=== PATIENT | female | born 1955 | race Caucasian/White ===

== ENCOUNTER 2018-07-01 17:10 | Inpatient (IN) ==
[2018-07-01 21:31] LABS: INR 1.1; Prothrombin Time 12.7 Seconds (9.4-12.1)
[2018-07-01 21:33] LABS: Activated Partial Thrombo Time 26.3 Seconds (26.0-36.0)
[2018-07-01 21:42] LABS: Basophils # 0.1 K/mcL (0.0-0.2); Basophils % 1.1 %; Eosinophils # 0.6 K/mcL (0.0-0.6); Eosinophils % 6.9 %; Hematocrit 42.9 % (35.3-44.9); Hemoglobin 11.9 g/dL (11.5-15.4); Immature Granulocytes % 1.1 % (0-4); Lymphocytes # 1.1 K/mcL (0.6-4.6); Lymphocytes % 13.7 %; Mean Corpuscular HGB Conc 27.7 g/dL (31.6-35.5); Mean Corpuscular Hemoglobin 23.1 pg (28.0-33.3); Mean Corpuscular Volume 83.1 fL (83.0-100.0); Mean Platelet Volume 9.2 fL (9.4-12.4); Monocytes # 0.7 K/mcL (0.0-1.3); Monocytes % 8.9 %; Neutrophils # 5.7 K/mcL (1.6-8.9); Platelet Count 299 K/mcL (140-400); Red Blood Count 5.16 M/mcL (3.82-4.97); Segmented Neutrophils % 68.3 %
[2018-07-01] MEDS: Sennosides/Docusate Sodium TABLET PO SCH (21:56)
[2018-07-01 21:57] LABS: Anisocytosis 1+ (Not Present); Hypochromasia Present (Not Present)
[2018-07-02] MEDS ORDERED: Melatonin 3 MG TABLET PO SCH (09:00)
[2018-07-02] MEDS: Aspirin Enteric Coated 325 MG Tablet PO SCH (09:53)
[2018-07-02] MEDS: Nicotine 21 MG PATCH.TD24 TD SCH (09:54)
[2018-07-02] MEDS: risperiDONE 1 MG TABLET PO SCH (09:54)
[2018-07-02] MEDS: Magnesium Oxide 400 MG TABLET PO SCH (09:54)
[2018-07-02] MEDS: Sennosides/Docusate Sodium TABLET PO SCH ×2 (09:54→21:31)
--- NOTE | 2018-07-02 19:15 | Internal Med History&Physical ---
Date of Encounter: 07/02/18 Time of Encounter: 18:45 Assessment and Plan (1) CVA (cerebral vascular accident) Current visit: Yes Status: Acute Continue aspirin. PT and OT evaluations will be done and further workup as needed. Qualifiers: CVA mechanism: embolism Precerebral and cerebral artery: unspecified precerebral artery Qualified Code(s): I63.10 - Cerebral infarction due to embolism of unspecified precerebral artery (2) Hypertension Current visit: Yes Status: Chronic Continue Lopressor. Qualifiers: Hypertension type: essential hypertension Qualified Code(s): I10 - Essential (primary) hypertension Internal Medicine - H&P: HPI Chief complaint: Stroke, pneumonia Admitted From: Hospital to Hospital Transfer Plans for Post Hospital Care: Home History of present illness: Ms. Vences is a 63 year old female who was transferred from [facility] to [facility] 06/20/2018 for acute respiratory failure and acute neurologic deficit. She required intubation through June 24 and completed a seven-day course of Levaquin. She had right lower lobe consolidation with pleural effusion and thoracentesis was done. She had acute neurologic deficits documented at [place] and MRI in [place] showed acute ischemic infarcts in left frontal, posterior right frontal, left parietal, and left occipital lobes consistent with central embolic etiology. Echocardiogram showed LVEF of 50-55% without thrombus seen but PFO documented. There was mild mitral regurgitation. Carotid Doppler studies showed 1-49% stenosis bilaterally. MBS showed penetration on thin liquids. She was placed on pureed diet. Following stabilization she transferred to [facility] swing bed for ongoing therapy needs. She is considered a fair to good historian. She does not number some details of her hospitalization. She denies pain or dyspnea at present time. She thinks she had a previous stroke but does not remember details. She denies seizures. Past Med Surg Social Fam HX - Past Medical History Medical history: CVA, hyperlipidemia, hypertension, myocardial infarction, SVT Psychiatric history: no psych history, bipolar - Past Surgical History Surgical History: angioplasty/stent Additional surgical history: LOOP implanted heart monitor. - Social History Smoking Status: Former smoker Smokeless Tobacco Status: No Alcohol use: none, unknown Drug use: unknown Internal Medicine - H&P: Meds Acetaminophen [Pain Relief] 650 mg PO Q6H PRN 07/01/18 [History] Albuterol Sulfate [Albuterol Inhaler] 2 puff IH Q4H PRN 07/01/18 [History] Aspirin Enteric Coated [Aspirin EC] 325 mg PO DAILY 07/01/18 [History] Atorvastatin [Lipitor] 80 mg PO HS 07/01/18 [History] Clopidogrel [Plavix] 75 mg PO DAILY 07/01/18 [History] Magnesium Oxide [Magnesium] 400 mg PO DAILY 07/01/18 [History] Melatonin 5 mg PO DAILY 07/01/18 [History] Metoprolol [Lopressor] 25 mg PO BID 07/01/18 [History] Nicotine Patch [Nicoderm] 21 mg TD DAILY 07/01/18 [History] Omeprazole [PriLOSEC] 40 mg PO DAILY 07/01/18 [History] Potassium Chloride [K-Tab ER] 20 meq PO DAILY 07/01/18 [History] RisperiDONE [Risperdal] 1 tab PO DAILY 07/01/18 [History] Sennosides/Docusate Sodium [Senna-Docusate Sodium Tablet] 1 tab PO BID 07/01/18 [History] 3 Allergy/AdvReac Type Severity Reaction Status Date / Time No Known Allergies Allergy Verified 07/01/18 18:51 All Systems PM: A 10-system review of systems was performed and is negative for pertinent findings except as documented above in the HPI. Review of systems: Gen.: She states her weight has been stable for several months Cardiovascular: She has history of hypertension. She had PFO documented during her recent [place] hospitalization. She denies LA heart failure DVT or pulmonary embolus Respiratory: She has smoked since age 15 up to one pack per day. She denies chronic lung disease and does not use home oxygen GI: She denies disorders of her liver gallbladder or exocrine pancreas : She denies hematuria dysuria or kidney stones Neurologic: As per history of present illness Endocrine: She denies diabetes thyroid disease or hyperlipidemia Hematology/oncology: She denies blood disorders cancers or anemia Psychiatric: She denies anxiety depression or other mental health issues [place] skeletal: She denies arthritis gout or other bone joint or muscle disorders. - Constitutional Vitals: Temp Pulse Resp BP Pulse Ox 98.4 F 86 18 135/79 93 07/02/18 19:05 07/02/18 19:05 07/02/18 19:05 07/02/18 19:05 07/02/18 19:05 Exam: Gen.: She is a well-developed well-nourished female sitting in a chair at bedside who appears in no acute distress HEENT: Head is atraumatic and normocephalic. Eyes: EOMI. There is no scleral icterus. Mouth: Mucosa is moist. Neck: Supple and nontender. There is no thyromegaly or adenopathy noted. Heart: Regular without murmurs gallops or ectopics Lungs: She has diminished breath sounds with egophony in the right base posteriorly. No wheezes or crackles are heard otherwise. Abdomen: Soft and nontender. No masses or guarding are noted. Extremities: There is no cyanosis edema or clubbing noted. Dorsalis pedis and posttibial pulses are trace to 1+ palpable bilaterally. Neurologic: Mental status: She is talkative and seems to be a fair to good historian. Cranial nerves: Smile is symmetric. Forehead wrinkles bilaterally. Tongue protrudes midline. EOMI. Motor: There is no pronator drift. Ankle flexion and extension strength against resistance is normal and symmetric. Cerebellar: Finger to nose is intact bilaterally. Skin: Warm and dry Internal Med - H&P Results - Labs CBC & Chem 7: 07/01/18 20:50 Labs: Short CBC 07/01/18 Range/Units 20:50 WBC 8.3 (4.3-11.1) K/mcL Hgb 11.9 (11.5-15.4) g/dL Hct 42.9 (35.3-44.9) % Plt Count 299 (140-400) K/mcL Neutrophils # 5.7 (1.6-8.9) K/mcL
[2018-07-02] MEDS: Melatonin 3 MG TABLET PO SCH (21:32)
[2018-07-03] MEDS: Aspirin Enteric Coated 325 MG Tablet PO SCH (09:03)
[2018-07-03] MEDS: risperiDONE 1 MG TABLET PO SCH (09:04)
[2018-07-03] MEDS: Sennosides/Docusate Sodium TABLET PO SCH ×2 (09:04→20:17)
[2018-07-03] MEDS: Magnesium Oxide 400 MG TABLET PO SCH (09:04)
[2018-07-03] MEDS: Nicotine 21 MG PATCH.TD24 TD SCH (09:04)
--- NOTE | 2018-07-03 14:20 | Internal Med Progress Note ---
Date of Encounter: 07/03/18 Time of Encounter: 14:10 - Assessment and plan (1) CVA (cerebral vascular accident) Current Visit: Yes Status: Acute Assessment and plan: July 03. Continue aspirin and therapy interventions. Qualifiers: CVA mechanism: embolism Precerebral and cerebral artery: unspecified precerebral artery Qualified Code(s): I63.10 - Cerebral infarction due to embolism of unspecified precerebral artery (2) Hypertension Current Visit: Yes Status: Chronic Assessment and plan: July 03. Continue Lopressor Qualifiers: Hypertension type: essential hypertension Qualified Code(s): I10 - Essential (primary) hypertension - Subjective Interval history: July 03. She has no new complaints. - Constitutional Vitals: Temp Pulse Resp BP Pulse Ox 98.3 F 78 16 142/80 91 07/03/18 07:31 07/03/18 07:31 07/03/18 07:31 07/03/18 07:31 07/03/18 07:31 Exam: She is resting comfortably in bed and appears in no acute distress. Her affect is overall cheerful. There is no pitting edema of her ankles. I reviewed her medications and lab results. Internal Medicine: Result - Labs CBC & Chem 7: 07/01/18 20:50 - ABG Interpretation ABG results: PT/INR, D-dimer PT 12.7 Seconds (9.4-12.1) H 07/01/18 20:50 Consult Discharge Plan - Plan Referrals: NONE,PCP [Primary Care Provider] - 1 week
[2018-07-03] MEDS: Melatonin 3 MG TABLET PO SCH (20:18)
[2018-07-04 06:54] LABS: Basophils # 0.1 K/mcL (0.0-0.2); Basophils % 0.7 %; Eosinophils # 0.4 K/mcL (0.0-0.6); Eosinophils % 5.8 %; Hematocrit 44.6 % (35.3-44.9); Hemoglobin 12.3 g/dL (11.5-15.4); Immature Granulocytes % 0.6 % (0-4); Lymphocytes # 0.9 K/mcL (0.6-4.6); Lymphocytes % 13.7 %; Mean Corpuscular HGB Conc 27.6 g/dL (31.6-35.5); Mean Corpuscular Hemoglobin 23.4 pg (28.0-33.3); Mean Corpuscular Volume 84.8 fL (83.0-100.0); Mean Platelet Volume 9.5 fL (9.4-12.4); Monocytes # 0.7 K/mcL (0.0-1.3); Monocytes % 10.3 %; Neutrophils # 4.7 K/mcL (1.6-8.9); Platelet Count 264 K/mcL (140-400); Red Blood Count 5.26 M/mcL (3.82-4.97); Red Cell Distribution Width 25.1 % (11.5-14.5); Segmented Neutrophils % 68.9 %
[2018-07-04 07:16] LABS: Alanine Aminotransferase 16 Units/L (7-52); Albumin 2.7 g/dL (3.5-5.7); Alkaline Phosphatase 55 Units/L (34-104); Aspartate Amino Transferase 21 Units/L (13-39); BUN/Creatinine Ratio 28 (6-26); Bilirubin,Total 0.5 mg/dL (0.3-1.0); Blood Urea Nitrogen 10 mg/dL (8-23); Calcium 8.2 mg/dL (8.6-10.3); Carbon Dioxide 36 mEq/L (23-29); Chloride 103 mEq/L (98-107); Globulin 2.8 g/dL (2.4-3.5); Glucose 93 mg/dL (70-105); Magnesium 1.5 mg/dL (1.6-2.6); Osmolality,Calculated 297 (280-300); Sodium 144 mEq/L (136-145); Total Protein 5.5 g/dL (6.4-8.9); eGFR For Non-African Americans > 60 (> 60)
[2018-07-04 07:43] LABS: Anisocytosis 1+ (Not Present); Hypochromasia Present (Not Present)
[2018-07-04] MEDS: Magnesium Oxide 400 MG TABLET PO SCH ×2 (08:58→21:25)
[2018-07-04] MEDS: risperiDONE 1 MG TABLET PO SCH (08:58)
[2018-07-04] MEDS: Aspirin Enteric Coated 325 MG Tablet PO SCH (08:58)
[2018-07-04] MEDS: Nicotine 21 MG PATCH.TD24 TD SCH (08:59)
[2018-07-04] MEDS: Acetaminophen 325 MG TABLET PO PRN (08:59)
[2018-07-04] MEDS: Sennosides/Docusate Sodium TABLET PO SCH ×2 (08:59→21:24)
[2018-07-04] MEDS ORDERED: Potassium Chloride Elixir 20 MEQ/15 ML UDC PO SCH (09:00)
[2018-07-04] MEDS: Melatonin 3 MG TABLET PO SCH (21:24)
[2018-07-04] MEDS: Potassium Chloride Elixir 20 MEQ/15 ML UDC PO SCH (21:24)
[2018-07-05] MEDS: Potassium Chloride Elixir 20 MEQ/15 ML UDC PO SCH ×2 (08:43→19:48)
[2018-07-05] MEDS: Nicotine 21 MG PATCH.TD24 TD SCH (08:43)
[2018-07-05] MEDS: Acetaminophen 325 MG TABLET PO PRN (08:46)
[2018-07-05] MEDS: Magnesium Oxide 400 MG TABLET PO SCH ×2 (08:47→19:48)
[2018-07-05] MEDS: Aspirin Enteric Coated 325 MG Tablet PO SCH (08:47)
[2018-07-05] MEDS: risperiDONE 1 MG TABLET PO SCH (08:47)
[2018-07-05] MEDS: Sennosides/Docusate Sodium TABLET PO SCH ×2 (08:47→19:48)
--- NOTE | 2018-07-05 17:40 | Internal Med Progress Note ---
Date of Encounter: 07/05/18 Time of Encounter: 17:30 - Assessment and plan (1) CVA (cerebral vascular accident) Current Visit: Yes Status: Acute Assessment and plan: July 03. Continue aspirin and therapy interventions. Qualifiers: CVA mechanism: embolism Precerebral and cerebral artery: unspecified precerebral artery Qualified Code(s): I63.10 - Cerebral infarction due to embolism of unspecified precerebral artery (2) Hypertension Current Visit: Yes Status: Chronic Assessment and plan: July 03. Continue Lopressor Qualifiers: Hypertension type: essential hypertension Qualified Code(s): I10 - Essential (primary) hypertension (3) Hypokalemia Current Visit: Yes Status: Acute Assessment and plan: July 05. Potassium level was 3.0 yesterday. She was started on supplemental potassium. Recheck labs in a.m. (4) Hypomagnesemia Current Visit: Yes Status: Acute Assessment and plan: July 05. Magnesium level was 1.5 yesterday. Magnesium oxide dose was increased to twice a day. Recheck labs in a.m. (5) Leg edema Current Visit: Yes Status: Acute Assessment and plan: July 05. Order d-dimer to evaluate significant left leg (unilateral) edema. - Subjective Interval history: July 03. She has no new complaints. July 05. She has no new complaints. She denies pain or significant dyspnea. - Constitutional Vitals: Temp Pulse Resp BP Pulse Ox 97.5 F L 88 18 122/68 99 07/05/18 07:59 07/05/18 07:59 07/05/18 07:59 07/05/18 07:59 07/05/18 07:59 Exam: She is resting comfortably on the side of bed. Her right leg shows trace edema. The left leg shows 2+ edema of the dorsum of the foot and lower leg. Reviewed her medications and lab results. Internal Medicine: Result - Labs CBC & Chem 7: 07/04/18 05:18 07/04/18 05:18 - ABG Interpretation ABG results: PT/INR, D-dimer PT 12.7 Seconds (9.4-12.1) H 07/01/18 20:50 Consult Discharge Plan - Plan Referrals: NONE,PCP [Primary Care Provider] - 1 week
[2018-07-05] MEDS: Melatonin 3 MG TABLET PO SCH (19:49)
[2018-07-05] MEDS: *HR* Enoxaparin 80 MG/0.8 ML SYRINGE SQ SCH (19:49)
[2018-07-06 06:31] LABS: Basophils % 0.6 %; Eosinophils # 0.4 K/mcL (0.0-0.6); Eosinophils % 5.1 %; Hematocrit 38.5 % (35.3-44.9); Hemoglobin 10.5 g/dL (11.5-15.4); Immature Granulocytes % 0.4 % (0-4); Lymphocytes # 1.2 K/mcL (0.6-4.6); Lymphocytes % 17.1 %; Mean Corpuscular HGB Conc 27.3 g/dL (31.6-35.5); Mean Corpuscular Hemoglobin 23.4 pg (28.0-33.3); Mean Corpuscular Volume 85.7 fL (83.0-100.0); Mean Platelet Volume 9.3 fL (9.4-12.4); Monocytes # 0.8 K/mcL (0.0-1.3); Neutrophils # 4.7 K/mcL (1.6-8.9); Platelet Count 224 K/mcL (140-400); Red Blood Count 4.49 M/mcL (3.82-4.97); Red Cell Distribution Width 24.6 % (11.5-14.5); Segmented Neutrophils % 65.8 %
[2018-07-06] MEDS: *HR* Enoxaparin 80 MG/0.8 ML SYRINGE SQ SCH ×2 (06:42→18:37)
[2018-07-06 06:51] LABS: BUN/Creatinine Ratio 20 (6-26); Blood Urea Nitrogen 7 mg/dL (8-23); Calcium 8.3 mg/dL (8.6-10.3); Carbon Dioxide 39 mEq/L (23-29); Chloride 104 mEq/L (98-107); Glucose 100 mg/dL (70-105); Magnesium 1.5 mg/dL (1.6-2.6); Osmolality,Calculated 296 (280-300); Potassium 3.9 mEq/L (3.5-5.1); Sodium 144 mEq/L (136-145); eGFR For Non-African Americans > 60 (> 60)
[2018-07-06 06:56] LABS: ABG Base Excess 12 mEq/L (-2 to 3); ABG HCO3 41 mEq/L (21-27); ABG Oxygen Saturation 91 % (95-98); ABG PCO2 77 mmHg (35-45); ABG PH 7.33 pH Units (7.32-7.45); ABG PO2 68 mmHg (85-104); ABG TCO2 43 mEq/L (20-26)
[2018-07-06 07:16] LABS: Hypochromasia Present (Not Present); Ovalocytes 1+ (Not Present)
[2018-07-06 07:17] LABS: Anisocytosis 1+ (Not Present); Platelet Estimate Normal (Normal)
[2018-07-06] MEDS: risperiDONE 1 MG TABLET PO SCH (08:08)
[2018-07-06] MEDS: Magnesium Oxide 400 MG TABLET PO SCH ×2 (08:08→21:31)
[2018-07-06] MEDS: Aspirin Enteric Coated 325 MG Tablet PO SCH (08:08)
[2018-07-06] MEDS: Potassium Chloride Elixir 20 MEQ/15 ML UDC PO SCH ×2 (08:09→21:31)
[2018-07-06] MEDS: Sennosides/Docusate Sodium TABLET PO SCH ×2 (08:09→21:31)
[2018-07-06] MEDS: Nicotine 21 MG PATCH.TD24 TD SCH (08:09)
--- NOTE | 2018-07-06 10:23 | Internal Med Progress Note ---
Date of Encounter: 07/06/18 Time of Encounter: 10:15 - Assessment and plan (1) CVA (cerebral vascular accident) Current Visit: Yes Status: Acute Assessment and plan: July 03. Continue aspirin and therapy interventions. Qualifiers: CVA mechanism: embolism Precerebral and cerebral artery: unspecified precerebral artery Qualified Code(s): I63.10 - Cerebral infarction due to embolism of unspecified precerebral artery (2) Hypertension Current Visit: Yes Status: Chronic Assessment and plan: July 03. Continue Lopressor Qualifiers: Hypertension type: essential hypertension Qualified Code(s): I10 - Essential (primary) hypertension (3) Hypokalemia Current Visit: Yes Status: Acute Assessment and plan: July 05. Potassium level was 3.0 yesterday. She was started on supplemental potassium. Recheck labs in a.m. July 06. Potassium normal at 3.9. Continue potassium supplement (4) Hypomagnesemia Current Visit: Yes Status: Acute Assessment and plan: July 05. Magnesium level was 1.5 yesterday. Magnesium oxide dose was increased to twice a day. Recheck labs in a.m. July 06. Magnesium level unchanged at 1.5. Continue present dose supplement and monitor labs. (5) Leg edema Current Visit: Yes Status: Acute Assessment and plan: July 05. Order d-dimer to evaluate significant left leg (unilateral) edema. July 06. D-dimer elevated at 1841. Awaiting venous Doppler studies of legs. She was started empirically on therapeutic dose Lovenox yesterday. - Subjective Interval history: July 03. She has no new complaints. July 05. She has no new complaints. She denies pain or significant dyspnea. July 06. She has no new complaints. Staff reported that she was lethargic earlier today. ABG showed minimal abnormalities. Head CT showed left frontal area 2 cm low attenuation concerning for neoplastic process. MRI was recommended. She had brain MRI in [place] recently during evaluation for acute ischemic infarcts. - Constitutional Vitals: Temp Pulse Resp BP Pulse Ox 97.7 F 83 18 120/71 99 07/06/18 07:08 07/06/18 08:02 07/06/18 08:02 07/06/18 08:02 07/06/18 08:02 Exam: She is resting comfortably on the side of bed. She is appropriate in conversation. Affect is cheerful. I reviewed her medications and lab results. Internal Medicine: Result - Labs CBC & Chem 7: 07/06/18 06:13 07/06/18 06:13 Labs: Short CBC 07/06/18 Range/Units 06:13 WBC 7.1 (4.3-11.1) K/mcL Hgb 10.5 L D (11.5-15.4) g/dL Hct 38.5 (35.3-44.9) % Plt Count 224 (140-400) K/mcL Neutrophils # 4.7 (1.6-8.9) K/mcL BMP 07/06/18 06:13 Sodium 144 Potassium 3.9 Chloride 104 Carbon Dioxide 39 H BUN 7 L Creatinine 0.35 L Glucose 100 Calcium 8.3 L - ABG Interpretation ABG results: ABG ABG pH 7.33 pH Units (7.32-7.45) 07/06/18 06:49 ABG pCO2 77 mmHg (35-45) H* 07/06/18 06:49 ABG pO2 68 mmHg (85-104) L 07/06/18 06:49 ABG O2 Saturation 91 % (95-98) L 07/06/18 06:49 PT/INR, D-dimer PT 12.7 Seconds (9.4-12.1) H 07/01/18 20:50 D-Dimer 1841 ng/mLFEU (0-500) H 07/05/18 17:53 - Impressions Impressions Head CT 07/06/18 07:01 IMPRESSION: 1. Focal area of low attenuation within the left frontal lobe measuring 2 cm. I am concerned this may represent a neoplastic process and glioma. I would recommend MRI of the brain with contrast for further evaluation. 2. Diffuse cerebral atrophy.. D/ / Kem Greenwood MD / Kem Greenwood MD Interpreting Provider: Kem Greenwood MD Consult Discharge Plan - Plan Referrals: NONE,PCP [Primary Care Provider] - 1 week
[2018-07-06] MEDS: Melatonin 3 MG TABLET PO SCH (21:32)
[2018-07-07] MEDS: *HR* Enoxaparin 80 MG/0.8 ML SYRINGE SQ SCH (05:49)
[2018-07-07] MEDS: risperiDONE 1 MG TABLET PO SCH (08:17)
[2018-07-07] MEDS: Potassium Chloride Elixir 20 MEQ/15 ML UDC PO SCH ×2 (08:17→21:10)
[2018-07-07] MEDS: Nicotine 21 MG PATCH.TD24 TD SCH (08:18)
[2018-07-07] MEDS: Magnesium Oxide 400 MG TABLET PO SCH ×2 (08:18→21:11)
[2018-07-07] MEDS: Sennosides/Docusate Sodium TABLET PO SCH ×2 (08:18→21:10)
[2018-07-07] MEDS: Aspirin Enteric Coated 325 MG Tablet PO SCH (08:18)
--- NOTE | 2018-07-07 11:49 | Internal Med Progress Note ---
Date of Encounter: 07/07/18 Time of Encounter: 11:40 - Assessment and plan (1) CVA (cerebral vascular accident) Current Visit: Yes Status: Acute Assessment and plan: July 03. Continue aspirin and therapy interventions. Qualifiers: CVA mechanism: embolism Precerebral and cerebral artery: unspecified precerebral artery Qualified Code(s): I63.10 - Cerebral infarction due to embolism of unspecified precerebral artery (2) Hypertension Current Visit: Yes Status: Chronic Assessment and plan: July 03. Continue Lopressor Qualifiers: Hypertension type: essential hypertension Qualified Code(s): I10 - Essential (primary) hypertension (3) Hypokalemia Current Visit: Yes Status: Acute Assessment and plan: July 05. Potassium level was 3.0 yesterday. She was started on supplemental potassium. Recheck labs in a.m. July 06. Potassium normal at 3.9. Continue potassium supplement (4) Hypomagnesemia Current Visit: Yes Status: Acute Assessment and plan: July 05. Magnesium level was 1.5 yesterday. Magnesium oxide dose was increased to twice a day. Recheck labs in a.m. July 06. Magnesium level unchanged at 1.5. Continue present dose supplement and monitor labs. (5) Leg edema Current Visit: Yes Status: Acute Assessment and plan: July 05. Order d-dimer to evaluate significant left leg (unilateral) edema. July 06. D-dimer elevated at 1841. Awaiting venous Doppler studies of legs. She was started empirically on therapeutic dose Lovenox yesterday. July 07. Improved. Discontinue Lovenox. - Subjective Interval history: July 03. She has no new complaints. July 05. She has no new complaints. She denies pain or significant dyspnea. July 06. She has no new complaints. Staff reported that she was lethargic earlier today. ABG showed minimal abnormalities. Head CT showed left frontal area 2 cm low attenuation concerning for neoplastic process. MRI was recommended. She had brain MRI in [place] recently during evaluation for acute ischemic infarcts. July 07. She has no new complaints. - Constitutional Vitals: Temp Pulse Resp BP Pulse Ox 97.5 F L 97 14 122/73 96 07/07/18 07:06 07/07/18 07:06 07/07/18 07:06 07/07/18 07:06 07/07/18 07:59 Exam: Resting comfortably in bed and appears in no acute distress. Edema has lessened in her legs. Her affect is cheerful. She is appropriate in conversation. I reviewed her medications and lab results. I informed her the venous ultrasound reported no DVT. Internal Medicine: Result - Labs CBC & Chem 7: 07/06/18 06:13 07/06/18 06:13 - ABG Interpretation ABG results: ABG ABG pH 7.33 pH Units (7.32-7.45) 07/06/18 06:49 ABG pCO2 77 mmHg (35-45) H* 07/06/18 06:49 ABG pO2 68 mmHg (85-104) L 07/06/18 06:49 ABG O2 Saturation 91 % (95-98) L 07/06/18 06:49 PT/INR, D-dimer PT 12.7 Seconds (9.4-12.1) H 07/01/18 20:50 D-Dimer 1841 ng/mLFEU (0-500) H 07/05/18 17:53 Consult Discharge Plan - Plan Referrals: NONE,PCP [Primary Care Provider] - 1 week
[2018-07-07] MEDS ORDERED: MOM Conc 10 ML UD.LIQ PO ONE (17:47)
[2018-07-07] MEDS: Melatonin 3 MG TABLET PO SCH (21:10)
[2018-07-08 06:42] LABS: Basophils # 0.1 K/mcL (0.0-0.2); Basophils % 0.6 %; Eosinophils # 0.4 K/mcL (0.0-0.6); Eosinophils % 4.6 %; Hematocrit 38.2 % (35.3-44.9); Hemoglobin 10.3 g/dL (11.5-15.4); Immature Granulocytes % 0.6 % (0-4); Lymphocytes % 12.7 %; Mean Corpuscular Hemoglobin 23.4 pg (28.0-33.3); Mean Corpuscular Volume 86.6 fL (83.0-100.0); Mean Platelet Volume 9.8 fL (9.4-12.4); Monocytes # 0.8 K/mcL (0.0-1.3); Monocytes % 10.5 %; Neutrophils # 5.6 K/mcL (1.6-8.9); Platelet Count 228 K/mcL (140-400); Red Blood Count 4.41 M/mcL (3.82-4.97); Red Cell Distribution Width 24.8 % (11.5-14.5)
[2018-07-08 07:37] LABS: BUN/Creatinine Ratio 18 (6-26); Blood Urea Nitrogen 6 mg/dL (8-23); Calcium 8.8 mg/dL (8.6-10.3); Carbon Dioxide 41 mEq/L (23-29); Chloride 99 mEq/L (98-107); Glucose 92 mg/dL (70-105); Osmolality,Calculated 289 (280-300); Potassium 4.6 mEq/L (3.5-5.1); Sodium 141 mEq/L (136-145); eGFR For Non-African Americans > 60 (> 60)
[2018-07-08 07:41] LABS: Anisocytosis 1+ (Not Present); Ovalocytes 1+ (Not Present)
[2018-07-08 07:42] LABS: Hypochromasia Present (Not Present)
[2018-07-08] MEDS: Potassium Chloride Elixir 20 MEQ/15 ML UDC PO SCH (07:44)
[2018-07-08] MEDS: Sennosides/Docusate Sodium TABLET PO SCH ×2 (07:44→22:53)
[2018-07-08] MEDS: risperiDONE 1 MG TABLET PO SCH (07:44)
[2018-07-08] MEDS: Magnesium Oxide 400 MG TABLET PO SCH ×2 (07:45→22:54)
[2018-07-08] MEDS: Aspirin Enteric Coated 325 MG Tablet PO SCH (07:51)
[2018-07-08] MEDS: Nicotine 21 MG PATCH.TD24 TD SCH (07:52)
[2018-07-08] MEDS: Melatonin 3 MG TABLET PO SCH (22:52)
[2018-07-09] MEDS: Aspirin Enteric Coated 325 MG Tablet PO SCH (08:24)
[2018-07-09] MEDS: Magnesium Oxide 400 MG TABLET PO SCH ×2 (08:24→20:28)
[2018-07-09] MEDS: Sennosides/Docusate Sodium TABLET PO SCH ×2 (08:24→20:28)
[2018-07-09] MEDS: risperiDONE 1 MG TABLET PO SCH (08:25)
[2018-07-09] MEDS: Nicotine 21 MG PATCH.TD24 TD SCH (08:25)
[2018-07-09] MEDS: MOM Conc 10 ML UD.LIQ PO SCH (17:24)
[2018-07-09] MEDS: Melatonin 3 MG TABLET PO SCH (20:28)
[2018-07-10] MEDS: Aspirin Enteric Coated 325 MG Tablet PO SCH (08:49)
[2018-07-10] MEDS: Nicotine 21 MG PATCH.TD24 TD SCH (08:49)
[2018-07-10] MEDS: risperiDONE 1 MG TABLET PO SCH (08:50)
[2018-07-10] MEDS: Magnesium Oxide 400 MG TABLET PO SCH (08:50)
[2018-07-10] MEDS: Sennosides/Docusate Sodium TABLET PO SCH ×2 (08:50→21:32)
--- NOTE | 2018-07-10 11:03 | Internal Med Progress Note ---
Date of Encounter: 07/10/18 Time of Encounter: 10:55 - Assessment and plan (1) CVA (cerebral vascular accident) Current Visit: Yes Status: Acute Assessment and plan: July 03. Continue aspirin and therapy interventions. July 10. Anticipate discharge home 07/12/2018. Qualifiers: CVA mechanism: embolism Precerebral and cerebral artery: unspecified precerebral artery Qualified Code(s): I63.10 - Cerebral infarction due to embolism of unspecified precerebral artery (2) Hypertension Current Visit: Yes Status: Chronic Assessment and plan: July 03. Continue Lopressor July 10. Change to Toprol-XL 25 mg daily. Qualifiers: Hypertension type: essential hypertension Qualified Code(s): I10 - Essential (primary) hypertension (3) Hypokalemia Current Visit: Yes Status: Acute Assessment and plan: July 05. Potassium level was 3.0 yesterday. She was started on supplemental potassium. Recheck labs in a.m. July 06. Potassium normal at 3.9. Continue potassium supplement July 10. Potassium level 4.6. Discontinue potassium supplement. (4) Hypomagnesemia Current Visit: Yes Status: Acute Assessment and plan: July 05. Magnesium level was 1.5 yesterday. Magnesium oxide dose was increased to twice a day. Recheck labs in a.m. July 06. Magnesium level unchanged at 1.5. Continue present dose supplement and monitor labs. July 10. Magnesium level 2.0. Discontinue magnesium supplement. (5) Leg edema Current Visit: Yes Status: Acute Assessment and plan: July 05. Order d-dimer to evaluate significant left leg (unilateral) edema. July 06. D-dimer elevated at 1841. Awaiting venous Doppler studies of legs. She was started empirically on therapeutic dose Lovenox yesterday. July 07. Improved. Discontinue Lovenox. - Subjective Interval history: July 03. She has no new complaints. July 05. She has no new complaints. She denies pain or significant dyspnea. July 06. She has no new complaints. Staff reported that she was lethargic earlier today. ABG showed minimal abnormalities. Head CT showed left frontal area 2 cm low attenuation concerning for neoplastic process. MRI was recommended. She had brain MRI in [place] recently during evaluation for acute ischemic infarcts. July 07. She has no new complaints. July 10. She has no new complaints. She denies pain or dyspnea. - Constitutional Vitals: Temp Pulse Resp BP Pulse Ox 98.2 F 72 17 102/66 95 07/10/18 06:54 07/10/18 06:54 07/10/18 06:54 07/10/18 06:54 07/10/18 09:05 Exam: She is resting comfortably in bed and appears in no acute distress. Her affect is bright and cheerful. I reviewed her medications and lab results. Internal Medicine: Result - Labs CBC & Chem 7: 07/08/18 06:06 07/08/18 06:06 - ABG Interpretation ABG results: ABG ABG pH 7.33 pH Units (7.32-7.45) 07/06/18 06:49 ABG pCO2 77 mmHg (35-45) H* 07/06/18 06:49 ABG pO2 68 mmHg (85-104) L 07/06/18 06:49 ABG O2 Saturation 91 % (95-98) L 07/06/18 06:49 PT/INR, D-dimer PT 12.7 Seconds (9.4-12.1) H 07/01/18 20:50 D-Dimer 1841 ng/mLFEU (0-500) H 07/05/18 17:53 Consult Discharge Plan - Plan Referrals: NONE,PCP [Primary Care Provider] - 1 week
[2018-07-10] MEDS: Melatonin 3 MG TABLET PO SCH (21:33)
[2018-07-11 05:31] LABS: Basophils # 0.1 K/mcL (0.0-0.2); Basophils % 1.1 %; Eosinophils # 0.4 K/mcL (0.0-0.6); Eosinophils % 7.9 %; Hematocrit 37.2 % (35.3-44.9); Hemoglobin 10.3 g/dL (11.5-15.4); Immature Granulocytes % 0.4 % (0-4); Lymphocytes # 1.1 K/mcL (0.6-4.6); Lymphocytes % 20.6 %; Mean Corpuscular HGB Conc 27.7 g/dL (31.6-35.5); Mean Corpuscular Hemoglobin 23.6 pg (28.0-33.3); Mean Corpuscular Volume 85.3 fL (83.0-100.0); Mean Platelet Volume 9.5 fL (9.4-12.4); Monocytes # 0.9 K/mcL (0.0-1.3); Monocytes % 16.5 %; Neutrophils # 2.9 K/mcL (1.6-8.9); Platelet Count 209 K/mcL (140-400); Red Blood Count 4.36 M/mcL (3.82-4.97); Red Cell Distribution Width 24.7 % (11.5-14.5); Segmented Neutrophils % 53.5 %
[2018-07-11 05:51] LABS: BUN/Creatinine Ratio 16 (6-26); Blood Urea Nitrogen 7 mg/dL (8-23); Carbon Dioxide 41 mEq/L (23-29); Chloride 97 mEq/L (98-107); Glucose 86 mg/dL (70-105); Osmolality,Calculated 285 (280-300); Potassium 4.4 mEq/L (3.5-5.1); Sodium 139 mEq/L (136-145); eGFR For Non-African Americans > 60 (> 60)
[2018-07-11 06:00] LABS: Anisocytosis 2+ (Not Present); Hypochromasia Present (Not Present)
[2018-07-11 06:01] LABS: Platelet Estimate Normal (Normal)
[2018-07-11 06:02] LABS: Basophilic Stippling 1+ (Not Present)
[2018-07-11 06:05] LABS: Large Platelets Present (Not Present)
[2018-07-11] MEDS: Nicotine 21 MG PATCH.TD24 TD SCH (08:51)
[2018-07-11] MEDS: Metoprolol XL (24 HR) Succ 25 MG TAB.ER.24H PO SCH (08:51)
[2018-07-11] MEDS: risperiDONE 1 MG TABLET PO SCH (08:51)
[2018-07-11] MEDS: Aspirin Enteric Coated 325 MG Tablet PO SCH (08:51)
[2018-07-11] MEDS: Sennosides/Docusate Sodium TABLET PO SCH ×2 (08:51→21:32)
--- NOTE | 2018-07-11 15:56 | Internal Med Progress Note ---
Date of Encounter: 07/11/18 Time of Encounter: 15:50 - Assessment and plan (1) CVA (cerebral vascular accident) Current Visit: Yes Status: Acute Assessment and plan: July 03. Continue aspirin and therapy interventions. July 10. Anticipate discharge home 07/12/2018. Qualifiers: CVA mechanism: embolism Precerebral and cerebral artery: unspecified precerebral artery Qualified Code(s): I63.10 - Cerebral infarction due to embolism of unspecified precerebral artery (2) Hypertension Current Visit: Yes Status: Chronic Assessment and plan: July 03. Continue Lopressor July 10. Change to Toprol-XL 25 mg daily. Qualifiers: Hypertension type: essential hypertension Qualified Code(s): I10 - Essential (primary) hypertension (3) Hypokalemia Current Visit: Yes Status: Acute Assessment and plan: July 05. Potassium level was 3.0 yesterday. She was started on supplemental potassium. Recheck labs in a.m. July 06. Potassium normal at 3.9. Continue potassium supplement July 10. Potassium level 4.6. Discontinue potassium supplement. July 11. Potassium remains normal at 4.4. (4) Hypomagnesemia Current Visit: Yes Status: Acute Assessment and plan: July 05. Magnesium level was 1.5 yesterday. Magnesium oxide dose was increased to twice a day. Recheck labs in a.m. July 06. Magnesium level unchanged at 1.5. Continue present dose supplement and monitor labs. July 10. Magnesium level 2.0. Discontinue magnesium supplement. (5) Leg edema Current Visit: Yes Status: Acute Assessment and plan: July 05. Order d-dimer to evaluate significant left leg (unilateral) edema. July 06. D-dimer elevated at 1841. Awaiting venous Doppler studies of legs. She was started empirically on therapeutic dose Lovenox yesterday. July 07. Improved. Discontinue Lovenox. (6) Hypoxemia requiring supplemental oxygen Current Visit: Yes Status: Acute Assessment and plan: She has COPD with hypoxemia. Room air oximetry decreased to 84% prior to initiating walking on 6 minute walk test. She became dyspneic and required immediate reinstitution of oxygen for comfort and safety. She will be prescribed oxygen at 2 L/m by nasal cannula 07/06 with portable gas and concentrator. - Subjective Interval history: July 03. She has no new complaints. July 05. She has no new complaints. She denies pain or significant dyspnea. July 06. She has no new complaints. Staff reported that she was lethargic earlier today. ABG showed minimal abnormalities. Head CT showed left frontal area 2 cm low attenuation concerning for neoplastic process. MRI was recommended. She had brain MRI in [place] recently during evaluation for acute ischemic infarcts. July 07. She has no new complaints. July 10. She has no new complaints. She denies pain or dyspnea. July 11. She has no new complaints and feels well - Constitutional Vitals: Temp Pulse Resp BP Pulse Ox 98.7 F 85 16 104/65 98 07/11/18 14:18 07/11/18 14:18 07/11/18 14:18 07/11/18 14:18 07/11/18 14:18 Exam: She is sitting comfortably in bed and appears in no acute distress. She is wearing oxygen by nasal cannula. Her affect is cheerful. She is appropriate in conversation. I reviewed her medications and lab results. Internal Medicine: Result - Labs CBC & Chem 7: 07/11/18 05:10 07/11/18 05:10 Labs: Short CBC 07/11/18 Range/Units 05:10 WBC 5.3 (4.3-11.1) K/mcL Hgb 10.3 L (11.5-15.4) g/dL Hct 37.2 (35.3-44.9) % Plt Count 209 (140-400) K/mcL Neutrophils # 2.9 (1.6-8.9) K/mcL BMP 07/11/18 05:10 Sodium 139 Potassium 4.4 Chloride 97 L Carbon Dioxide 41 H* BUN 7 L Creatinine 0.43 L Glucose 86 Calcium 9.0 - ABG Interpretation ABG results: ABG ABG pH 7.33 pH Units (7.32-7.45) 07/06/18 06:49 ABG pCO2 77 mmHg (35-45) H* 07/06/18 06:49 ABG pO2 68 mmHg (85-104) L 07/06/18 06:49 ABG O2 Saturation 91 % (95-98) L 07/06/18 06:49 PT/INR, D-dimer PT 12.7 Seconds (9.4-12.1) H 07/01/18 20:50 D-Dimer 1841 ng/mLFEU (0-500) H 07/05/18 17:53 Consult Discharge Plan - Plan Referrals: NONE,PCP [Primary Care Provider] - 1 week
[2018-07-11] MEDS: MOM Conc 10 ML UD.LIQ PO SCH (16:54)
[2018-07-11] MEDS: Melatonin 3 MG TABLET PO SCH (21:33)
[2018-07-12 07:20] VITALS: BP 96/56
[2018-07-12] MEDS: Nicotine 21 MG PATCH.TD24 TD SCH (09:57)
[2018-07-12] MEDS: risperiDONE 1 MG TABLET PO SCH (09:57)
[2018-07-12] MEDS: Aspirin Enteric Coated 325 MG Tablet PO SCH (09:57)
[2018-07-12] MEDS: Sennosides/Docusate Sodium TABLET PO SCH (09:57)
[2018-07-12] MEDS: Metoprolol XL (24 HR) Succ 25 MG TAB.ER.24H PO SCH (09:57)
--- NOTE | 2018-07-12 10:53 | Discharge Summary ---
Date of Encounter: 07/12/18 Time of Encounter: 10:40 - Discharge Diagnosis (1) CVA (cerebral vascular accident) Priority: Primary Status: Acute Qualifiers: CVA mechanism: embolism Precerebral and cerebral artery: unspecified precerebral artery Qualified Code(s): I63.10 - Cerebral infarction due to embolism of unspecified precerebral artery (2) Hypertension Priority: Secondary Status: Chronic Qualifiers: Hypertension type: essential hypertension Qualified Code(s): I10 - Essential (primary) hypertension (3) Hypokalemia Priority: Secondary Status: Resolved (4) Hypomagnesemia Priority: Secondary Status: Resolved (5) Leg edema Priority: Secondary Status: Acute (6) Hypoxemia requiring supplemental oxygen Priority: Secondary Status: Chronic Hospital course: Ms. Vences is a 63 year old female who was transferred from [facility] to [facility] 06/20/2018 for acute respiratory failure and acute neurologic deficit. She required intubation through June 24 and completed a seven-day course of Levaquin. She had right lower lobe consolidation with pleural effusion and thoracentesis was done. She had acute neurologic deficits documented at [place] and MRI in [place] showed acute ischemic infarcts in left frontal, posterior right frontal, left parietal, and left occipital lobes consistent with central embolic etiology. Echocardiogram showed LVEF of 50-55% without thrombus seen but PFO documented. There was mild mitral regurgitation. Carotid Doppler studies showed 1-49% stenosis bilaterally. MBS showed penetration on thin liquids. She was placed on pureed diet. Following stabilization she transferred to [facility] swing bed for ongoing therapy needs. Initial orders were written by the discharging physicians at [facility]. I saw her on July 02 and performed a history and physical. She had physical therapy and occupational therapy evaluations with ongoing intervention. She made satisfactory progress. Aspirin and Plavix were continued. Speech/ swallowing therapist evaluation and intervention was done for cognitive therapy. Electrolyte abnormalities resolved with supplementation of potassium and magnesium. Leg edema was evaluated with venous ultrasound after d-dimer returned elevated. No evidence of DVT was noted. Room air oximetry showed saturation 84% at rest on day prior to discharge. She will be prescribed oxygen 2 L/m by nasal cannula 07/06 with portable gas and concentrator. I encouraged her strongly to become a nonsmoker. On July 12 she was stable for discharge home. She will follow with her PCP within 1 week.. - Time Spent with Patient Total time spent providing and/or coordinating discharge services: - Discharge Medications Prescriptions: Metoprolol XL (24 HR) Succ [Toprol XL] 12.5 mg PO DAILY #15 tab.er.24h Home Medications: Acetaminophen [Pain Relief] 650 mg PO Q6H PRN 07/01/18 [History] Albuterol Sulfate [Albuterol Inhaler] 2 puff IH Q4H PRN 07/01/18 [History] Aspirin Enteric Coated [Aspirin EC] 325 mg PO DAILY 07/01/18 [History] Atorvastatin [Lipitor] 80 mg PO HS 07/01/18 [History] Clopidogrel [Plavix] 75 mg PO DAILY 07/01/18 [History] Magnesium Oxide [Magnesium] 400 mg PO DAILY 07/01/18 [History] Melatonin 5 mg PO DAILY 07/01/18 [History] Nicotine Patch [Nicoderm] 21 mg TD DAILY 07/01/18 [History] Omeprazole [PriLOSEC] 40 mg PO DAILY 07/01/18 [History] Potassium Chloride [K-Tab ER] 20 meq PO DAILY 07/01/18 [History] RisperiDONE [Risperdal] 1 tab PO DAILY 07/01/18 [History] Sennosides/Docusate Sodium [Senna-Docusate Sodium Tablet] 1 tab PO BID 07/01/18 [History] Metoprolol XL (24 HR) Succ [Toprol XL] 12.5 mg PO DAILY #15 tab.er.24h 07/12/18 [Rx] Allergies/Adverse Reactions: 3 Allergy/AdvReac Type Severity Reaction Status Date / Time No Known Allergies Allergy Verified 07/01/18 18:51 Date of admission: 07/01/18 19:32 Primary care physician: PCP NONE Consults: 07/01/18 19:22 Consult to Occupational Therapy [CONS] Routine Comment: Evaluate, develop and implement POC Reason for Consult: s/p CVA Does patient have active BEDREST order?: No Is patient medically & hemodynamically stable?: Yes Consult to Physical Therapy [CONS] Routine Comment: Evaluate, develop and implement POC Reason for Consult: s/p CVA Does patient have active BEDREST order?: No Is patient medically & hemodynamically stable?: Yes Consult to Speech Therapy [CONS] Routine Comment: Evaluate, develop and implement POC Reason for Consult: s/p CVA - soft chopped diet Call Completed: No 07/01/18 20:02 Consult to Occupational Therapy [CONS] Routine Comment: OT to evaluate, assess, and implement plan of care Reason for Consult: OT to evaluate, assess, and implement plan of care Does patient have active BEDREST order?: No Is patient medically & hemodynamically stable?: Yes Patient assessed for mobility or mobilized this visit?: No Consult to Physical Therapy [CONS] Routine Comment: PT to evaluate, assess, and implement plan of care Reason for Consult: PT to evaluate, assess, and implement plan of care Does patient have active BEDREST order?: No Is patient medically & hemodynamically stable?: Yes Patient assessed for mobility or mobilized this visit?: No Consult to Engineering Drawings Checker [CONS] Routine Reason for SW Consult: New swing bed admission. - Constitutional Vitals: Temp Pulse Resp BP Pulse Ox 98.5 F 88 18 96/56 94 07/12/18 07:17 07/12/18 07:17 07/12/18 07:17 07/12/18 07:17 07/12/18 07:17 - Patient Status Disposition: Home Health Service - Discharge Instructions Follow Up With: NONE,PCP [Primary Care Provider] - 1 week - Diet and Activity Activity: as per physical therapy Diet: advance to your usual diet
--- NOTE | 2018-07-12 10:59 | Physician Discharge Referral ---
Home Health/Hosp Referral Info Transfer to: Home Health Attending Provider: Loco Provider in Charge Post Discharge: PCP - Diagnosis (1) CVA (cerebral vascular accident) Priority: Primary Status: Acute (2) Hypertension Priority: Secondary Status: Chronic (3) Hypokalemia Priority: Secondary Status: Resolved (4) Hypomagnesemia Priority: Secondary Status: Resolved (5) Leg edema Priority: Secondary Status: Acute (6) Hypoxemia requiring supplemental oxygen Priority: Secondary Status: Chronic - Respiratory Orders Oxygen / L per min (2 L/m by nasal cannula 07/06.) Smoking Cessation: Smoking cessation has been advised. For more information, call the [place] Tobacco Quit Line at 7-738-IQQI-NOW. - Diet/Nutrition Diet/Nutrition Orders: Mechanical Soft - Activity Activity Orders: Walker - Services Needed Following services are medically necessary services: Nursing, Home Health Aide, Physical Therapy, Occupational Therapy - Transfer Medications Prescriptions: Metoprolol XL (24 HR) Succ [Toprol XL] 12.5 mg PO DAILY #15 tab.er.24h Home Medications: Acetaminophen [Pain Relief] 650 mg PO Q6H PRN 07/01/18 [History] Albuterol Sulfate [Albuterol Inhaler] 2 puff IH Q4H PRN 07/01/18 [History] Aspirin Enteric Coated [Aspirin EC] 325 mg PO DAILY 07/01/18 [History] Atorvastatin [Lipitor] 80 mg PO HS 07/01/18 [History] Clopidogrel [Plavix] 75 mg PO DAILY 07/01/18 [History] Magnesium Oxide [Magnesium] 400 mg PO DAILY 07/01/18 [History] Melatonin 5 mg PO DAILY 07/01/18 [History] Nicotine Patch [Nicoderm] 21 mg TD DAILY 07/01/18 [History] Omeprazole [PriLOSEC] 40 mg PO DAILY 07/01/18 [History] Potassium Chloride [K-Tab ER] 20 meq PO DAILY 07/01/18 [History] RisperiDONE [Risperdal] 1 tab PO DAILY 07/01/18 [History] Sennosides/Docusate Sodium [Senna-Docusate Sodium Tablet] 1 tab PO BID 07/01/18 [History] Metoprolol XL (24 HR) Succ [Toprol XL] 12.5 mg PO DAILY #15 tab.er.24h 07/12/18 [Rx] Allergies/Adverse Reactions: 3 Allergy/AdvReac Type Severity Reaction Status Date / Time No Known Allergies Allergy Verified 07/01/18 18:51 Certification: Further, I certify that my clinical findings support that this patient is homebound (i.e. absences from home require considerable and taxing effort and are for medical reasons or zoroastrianism services or infrequently or short duration when for other reasons) because: Homebound Reason: Leaving home requires considerable and taxing effort due to condition (CVA with impaired mobility.) Attestation: My signature below is to certify that this patient is under my care and that I, or nurse practitioner, or a physician's information technology assistant working with me, has a face-to -face encounter with this patient.
== END 2018-07-12 13:00 | disposition home health service (06) | DRG 57 ==
LOC: INPPIK 19:32
PROVIDERS: ADMIT Internal Medicine; ATTEND Internal Medicine